=== PATIENT | male | born 1945 | race Caucasian/White ===

== ENCOUNTER → 2016-06-02 | Outpatient (CLI) | payer OTHER ==
[~2016-06-02] VITALS: Ht 180.3 cm; Wt 111.6 kg
[~2016-06-02] MED LIST: ALLEGRA ALLERG180 MG PO; ALLEGRA180 MG PO; CEFTIN500 MG PO; ENALAPRIL MALEAT5 M1 PO; LIPITOR20 MG PO; MONUROL SACHET 33 GM PO; OXYCODONE HCL10 MG PO; TOPICORT LP TP; TYLENOL325 M1 PO; VYTORIN 10/21 TABLET PO
== END | disposition home or self-care (01) ==
LOC: AMB 10:27
PROC: 0DJD8ZZ Inspection of Lower Intestinal Tract, Via Natural or Artificial Opening Endoscopic (ICD-10-PCS; principal; 2016-06-02)
DX: K62.5 Hemorrhage of anus and rectum (principal); K64.8 Other hemorrhoids; K62.89 Other specified diseases of anus and rectum; I10 Essential (primary) hypertension; G47.30 Sleep apnea, unspecified; Z87.891 Personal history of nicotine dependence
CPT/HCPCS: J2250; J3010